=== PATIENT | female | born 1950 | race Caucasian/White ===

== ENCOUNTER 2018-11-16 15:42 | Outpatient (CLI) | payer MEDICARE, OTHER ==
[~2018-11-16] VITALS: Ht 167.6 cm; Wt 99.8 kg
[~2018-11-16 15:42] MED LIST: ASPI-612 PO; ATOR80TA PO; BUSP15TA14 PO; CELE-85 PO; CYCL-1 PO; EVOL140P SUBCUT; FLUO20CA39 PO; LAMO200T2 PO; LISI-604 PO; LOPE-144 PO; METO25TA6 PO; MIRT30TA8 PO; NITR0.4T51 SL; OMEP40CA37 PO
[2018-11-16 16:01] LABS: TOTAL HEMOGLOBIN 14.3 G/dl (12.0-16.0)
[2018-11-16] MEDS ORDERED: albuterol 2.5 MG/3 ML nebule NEB ONE (16:25)
== END 2018-11-16 23:59 | disposition home or self-care (01) ==
LOC: RT 15:42
PROVIDERS: ATTEND Internal Medicine Pulmonary Disease
DX: J44.9 Chronic obstructive pulmonary disease, unspecified (principal); J98.4 Other disorders of lung; I10 Essential (primary) hypertension; Z87.891 Personal history of nicotine dependence; Z79.899 Other long term (current) drug therapy
CPT/HCPCS: 85018; 94060; 94727; 94729; 94760

== ENCOUNTER 2019-06-04 18:33 | Emergency (ER) | payer MEDICARE, OTHER ==
[~2019-06-04] VITALS: Ht 167.6 cm; Wt 100.9 kg
[~2019-06-04 18:33] MED LIST changes: +ALBU8.5H8 INH; -BUSP15TA14 PO; +BUSP15TA8 PO; +COLE5PAC3 PO; -CYCL-1 PO; -EVOL140P SUBCUT; +EVOL140P3 SUBCUT; +FLUT12AE4 INH; +FURO40TA4 PO; -LISI-604 PO; -LOPE-144 PO; +MIRT15TA8 PO; -MIRT30TA8 PO; -NITR0.4T51 SL; -OMEP40CA37 PO; +OXYC-511 PO; +PANT-47 PO
--- NOTE | 2019-06-04 21:49 | NUR ---
PT HAS BEEN PO-CHALLENEGED WITH NO DYSPHAGIA OR VOMITING. MINOR BURPING NOTED BUT PT DENIES PAIN. CARLOS AWARE.
[2019-06-04 22:15] VITALS: BP 122/62
--- NOTE | 2019-06-08 08:39 | NUR ---
Case Management DC follow up: spoke to pt via telephone: reported no s/s dysphagia noted. Able to swallow w/o issues. solid foods, thin liquids, medications w/o issues. verbalizes understanding of medications and why prescribed, no ase at this time. pt states "everything works". pt states she still has diarrhea, but it is normal for her. she is having BMs. pt presented to the ER 06/04/2019 post paraesophageal hernia repair type 3/Dr Watt (06/01/2019) c/o difficulty swallowing, feeling blocked/constipated, NV. DC from ED after assessment deemed safe. Issues have resolved.Pt also denies abd pain, distention. Denies SOB, resp distress, cp, emergent general pain, NV. dizziness, or other issues that would warrant ER visit for further evaluation. Follow up w/Dr Watt/06/16/2019 and PCP/[facility]. All needs met, questions answered in ER/DC, no further questions at this time.
== END 2019-06-04 22:16 | disposition home or self-care (01) ==
LOC: ER 18:34
DX: R13.10 Dysphagia, unspecified (principal); E78.00 Pure hypercholesterolemia, unspecified; I10 Essential (primary) hypertension; I25.2 Old myocardial infarction; Z90.49 Acquired absence of other specified parts of digestive tract; Z90.710 Acquired absence of both cervix and uterus; Z95.5 Presence of coronary angioplasty implant and graft; Z88.5 Allergy status to narcotic agent; Z79.82 Long term (current) use of aspirin; Z79.899 Other long term (current) drug therapy
CPT/HCPCS: 99281

== ENCOUNTER 2020-09-05 14:42 | Emergency (ER) | payer MEDICARE, OTHER ==
[~2020-09-05] VITALS: Ht 170.2 cm; Wt 84.0 kg
[~2020-09-05 14:42] MED LIST changes: +LOP25T PO; -METO25TA6 PO; -OXYC-511 PO; +OXYC1TAB17 PO
[2020-09-05] MEDS ORDERED: normal saline 1000ML IV soln IVB ONE (14:50)
[2020-09-05 15:17] LABS: BASOPHILS # (AUTO) 0.1 X10'3 (0-0.2); BASOPHILS % (AUTO) 1.7 % (0-1); EOSINOPHILS # (AUTO) 0.1 X10'3 (0-0.9); EOSINOPHILS % (AUTO) 2.3 % (0-6); HEMATOCRIT 37.1 % (35.0-45.0); HEMOGLOBIN 11.8 g/dl (12.0-16.0); LYMPHOCYTES % (AUTO) 34.8 % (21-51); MEAN CORPUSCULAR HEMOGLOBIN 27.9 PG (27.0-31.0); MEAN CORPUSCULAR HGB CONC 31.8 g/dL (33.0-36.5); MEAN CORPUSCULAR VOLUME 87.8 FL (78-98); MEAN PLATELET VOLUME 8.4 FL (7.4-10.4); MONOCYTES # (AUTO) 0.7 X10'3 (0-0.9); MONOCYTES % (AUTO) 11.9 % (2-12); NEUTROPHILS # (AUTO) 2.8 X10'3 (1.8-7.7); NEUTROPHILS % (AUTO) 49.3 % (42-75); PLATELET COUNT 260 X10'3 (140-440); RED BLOOD COUNT 4.23 X10'6 (4.20-5.60); RED CELL DISTRIBUTION WIDTH 25.8 % (11.5-14.5); WHITE BLOOD COUNT 5.7 X10'3 (4.5-11.0)
[2020-09-05 15:32] LABS: ALANINE AMINOTRANSFERASE 28 U/L (12-78); ALBUMIN/GLOBULIN RATIO 1.1 (1.1-1.5); ALKALINE PHOSPHATASE 108 IU/L (46-116); ANION GAP 8 (8-16); ASPARTATE AMINO TRANSFERASE 19 U/L (10-37); BILIRUBIN,TOTAL 0.5 MG/DL (0.1-1.0); BLOOD UREA NITROGEN 16 MG/DL (7-18); BUN/CREATININE RATIO 15.4 (6.6-38.0); CALCIUM 8.7 MG/DL (8.5-10.1); CHLORIDE 106 MMOL/L (99-107); CREATININE 1.04 MG/DL (0.40-0.90); GLUCOSE 95 MG/DL (70-104); POTASSIUM 4.3 MMOL/L (3.5-5.1); SODIUM 143 MMOL/L (135-145); TOTAL CARBON DIOXIDE 29.3 MMOL/L (24-32); TOTAL PROTEIN 7.5 G/DL (6.4-8.2); eGFR 53 ML/MIN
[2020-09-05 16:12] VITALS: BP 103/55
[2020-09-05 16:21] LABS: ANISOCYTOSIS 3+; HYPOCHROMASIA 1+; PLATELET ESTIMATE NORMAL; TOTAL CELLS COUNTED 200
[2020-09-05 16:22] LABS: BURR CELLS FEW; ELLIPTOCYTES 1+; SCHISTOCYTES FEW; TARGET CELLS FEW; TEAR DROP CELLS FEW
== END 2020-09-05 17:25 | disposition home or self-care (01) ==
LOC: ER 14:43
DX: R42 Dizziness and giddiness (principal); E86.0 Dehydration; R11.0 Nausea; E78.00 Pure hypercholesterolemia, unspecified; I10 Essential (primary) hypertension; I25.2 Old myocardial infarction; F41.9 Anxiety disorder, unspecified; F32.9 Major depressive disorder, single episode, unspecified; Z90.49 Acquired absence of other specified parts of digestive tract; Z90.710 Acquired absence of both cervix and uterus; Z88.8 Allergy status to other drugs, medicaments and biological substances; Z79.82 Long term (current) use of aspirin; Z79.899 Other long term (current) drug therapy
CPT/HCPCS: 36415; 71045; 80053; 84484; 85007; 85025; 93005; 96360; 99285; J7030

== ENCOUNTER 2024-03-08 15:06 | Emergency (ER) | payer MEDICARE, OTHER ==
[~2024-03-08] VITALS: Ht 167.6 cm; Wt 72.7 kg
[~2024-03-08 15:06] MED LIST changes: +ALBU8.5H17 INH; -ALBU8.5H8 INH; +AZIT500T9 PO; +CELE-127 PO; -CELE-85 PO; +GUAI600T45 PO; +IPRA3AMP9 NEB; +MIRT-87 PO; -MIRT15TA8 PO
[2024-03-08 15:09] VITALS: TEMP 97.6
[2024-03-08] MEDS ORDERED: MECL-302 PO (17:18)
[2024-03-08] MEDS ORDERED: ONDA-245 PO (17:18)
[2024-03-08 17:19] VITALS: BP 128/73; PULSE 77; RESP 16; O2SAT 98
== END 2024-03-08 17:23 | disposition home or self-care (01) ==
LOC: ER 15:07
DX: S06.0XAA Concussion with loss of consciousness status unknown, initial encounter (principal); S09.8XXA Other specified injuries of head, initial encounter; E78.00 Pure hypercholesterolemia, unspecified; I10 Essential (primary) hypertension; I25.2 Old myocardial infarction; F41.9 Anxiety disorder, unspecified; F32.A Depression, unspecified; Z90.49 Acquired absence of other specified parts of digestive tract; Z90.710 Acquired absence of both cervix and uterus; Z95.5 Presence of coronary angioplasty implant and graft; Z88.8 Allergy status to other drugs, medicaments and biological substances; Z79.2 Long term (current) use of antibiotics; Z79.82 Long term (current) use of aspirin; Z79.899 Other long term (current) drug therapy; W01.0XXA Fall on same level from slipping, tripping and stumbling without subsequent striking against object, initial encounter; Y93.89 Activity, other specified; Y92.89 Other specified places as the place of occurrence of the external cause; Y99.8 Other external cause status
CPT/HCPCS: 70450; 99284

== ENCOUNTER 2024-08-03 20:14 | Emergency (ER) | payer MEDICARE, OTHER ==
[~2024-08-03] VITALS: Ht 170.2 cm; Wt 81.4 kg
[~2024-08-03 20:14] MED LIST changes: +ATOR-429 PO; -ATOR80TA PO; +MECL-302 PO; +ONDA-245 PO
[2024-08-03] MEDS ORDERED: tetanus & diphtheria toxoid (Td) vaccine 0.5ml IMVAC ONE (20:35)
[2024-08-03 20:46] LABS: BASOPHILS # (AUTO) 0.1 X10'3 (0-0.2); BASOPHILS % (AUTO) 1.2 % (0-1); EOSINOPHILS # (AUTO) 0.1 X10'3 (0-0.9); EOSINOPHILS % (AUTO) 2.1 % (0-6); HEMATOCRIT 33.1 % (35.0-45.0); HEMOGLOBIN 10.5 g/dl (12.0-16.0); LYMPHOCYTES # (AUTO) 2.1 X10'3 (1.1-4.8); LYMPHOCYTES % (AUTO) 35.9 % (21-51); MEAN CORPUSCULAR HEMOGLOBIN 28.6 PG (27.0-31.0); MEAN CORPUSCULAR HGB CONC 31.7 g/dL (33.0-36.5); MEAN CORPUSCULAR VOLUME 90.2 FL (78-98); MEAN PLATELET VOLUME 8.7 FL (7.4-10.4); MONOCYTES # (AUTO) 0.6 X10'3 (0-0.9); MONOCYTES % (AUTO) 10.9 % (2-12); NEUTROPHILS # (AUTO) 2.9 X10'3 (1.8-7.7); NEUTROPHILS % (AUTO) 49.9 % (42-75); PLATELET COUNT 170 X10'3 (140-440); RED BLOOD COUNT 3.67 X10'6 (4.20-5.60); WHITE BLOOD COUNT 5.7 X10'3 (4.5-11.0)
[2024-08-03 20:59] LABS: APTT 26 SECONDS (22-32); PROTHROMBIN TIME 10.4 SECONDS (9.0-12.0)
[2024-08-03 21:00] LABS: ALANINE AMINOTRANSFERASE 25 U/L (12-78); ALBUMIN/GLOBULIN RATIO 1.2 (1.1-1.5); ALKALINE PHOSPHATASE 102 IU/L (46-116); ANION GAP 5 (8-16); ASPARTATE AMINO TRANSFERASE 18 U/L (10-37); BILIRUBIN,TOTAL 0.5 MG/DL (0.1-1.0); BLOOD UREA NITROGEN 15 MG/DL (7-18); BUN/CREATININE RATIO 19.2 (10.0-20.0); CALCIUM 8.8 MG/DL (8.5-10.1); CHLORIDE 107 MMOL/L (99-107); CREATININE 0.78 MG/DL (0.40-0.90); GLUCOSE 94 MG/DL (70-104); SODIUM 143 MMOL/L (135-145); TOTAL CARBON DIOXIDE 31.5 MMOL/L (24-32); TOTAL PROTEIN 7.4 G/DL (6.4-8.2); eCRCL 63 ML/MIN; eGFR 73 ML/MIN
[2024-08-03 21:04] LABS: MAGNESIUM 2.2 MG/DL (1.5-2.4)
[2024-08-03] MEDS: TETanus/Pertussis (Acell)/Diphther VAC/PF (Tdap-Adult) 0.5ml syringe IMVAC ONE (21:22)
[2024-08-03] MEDS ORDERED: HYDR-3965 PO (22:47)
[2024-08-03] MEDS ORDERED: ONDA-243 PO (22:47)
[2024-08-03] MEDS ORDERED: NALO4SPR BOTHNARES (22:47)
[2024-08-03] MEDS ORDERED: AMOX-580 PO (22:47)
[2024-08-03 23:03] VITALS: BP 135/61; PULSE 73; RESP 13; TEMP 98.4; O2SAT 95
== END 2024-08-03 23:06 | disposition home or self-care (01) ==
LOC: ER 20:14
DX: S02.40DA Maxillary fracture, left side, initial encounter for closed fracture (principal); S02.32XA Fracture of orbital floor, left side, initial encounter for closed fracture; S00.81XA Abrasion of other part of head, initial encounter; E78.00 Pure hypercholesterolemia, unspecified; G89.11 Acute pain due to trauma; I10 Essential (primary) hypertension; I25.2 Old myocardial infarction; Z88.5 Allergy status to narcotic agent; Z88.6 Allergy status to analgesic agent; Z90.49 Acquired absence of other specified parts of digestive tract; Z90.710 Acquired absence of both cervix and uterus; Z79.01 Long term (current) use of anticoagulants; Z95.5 Presence of coronary angioplasty implant and graft; W05.0XXA Fall from non-moving wheelchair, initial encounter; W19.XXXA Unspecified fall, initial encounter; Y93.89 Activity, other specified; Y92.89 Other specified places as the place of occurrence of the external cause; Y99.8 Other external cause status
CPT/HCPCS: 36415; 70450; 71045; 72125; 80053; 83735; 84484; 85025; 85610; 85730; 90715; 93005; 99285; A4615; G0008; 90471

== ENCOUNTER 2025-04-18 10:42 | Emergency (ER) | payer MEDICARE, OTHER ==
[~2025-04-18] VITALS: Ht 170.2 cm; Wt 80.4 kg
[~2025-04-18 10:42] MED LIST changes: +AZEL137S4 BOTHNARES; -AZIT500T9 PO; -CELE-127 PO; +CLON-570; -COLE5PAC3 PO; -EVOL140P3 SUBCUT; -FLUO20CA39 PO; +FLUO20CA41 PO; +FURO20TA4 PO; -FURO40TA4 PO; -GUAI600T45 PO; -IPRA3AMP9 NEB; +LACO50TA2 PO; -MECL-302 PO; +MIRT-66 PO; -MIRT-87 PO; +ONDA-243 PO; -ONDA-245 PO; -OXYC1TAB17 PO; -PANT-47 PO; +PANT40TA54 PO; +QUET25TA PO
[2025-04-18 10:45] VITALS: TEMP 99.3
--- NOTE | 2025-04-18 11:48 | RADIOLOGY REPORT ---
INDICATION: tailbone pain after fall TECHNIQUE: 3 views of the sacrum/coccyx spine were obtained. COMPARISON: None FINDINGS: There are no acute fractures or subluxations. Diffuse osteopenia. Moderate degenerative changes of the rectum. IMPRESSION: No acute fracture or subluxation.
[2025-04-18 12:05] VITALS: BP 102/47; PULSE 83; O2SAT 96
--- NOTE | 2025-04-18 12:11 | Physician Documentation ---
History of Present Illness ~ Chief Complaint: Mechanical Fall Stated Complaint: FALL TAILBONE PAIN Time Seen by MD: 10:57 Primary Medical Doctor: Braydon Mode of Arrival: POV HPI 74 year old female s/p ground level fall onto buttocks several days ago, experiencing pain to tailbone. Is ambulatory but severe pain. Denies other injury. Tetanus within 5 Years?: Yes Medication Reconciliation Allergies: Coded Allergies: clonazepam (Unverified Allergy, Unknown, 03/27/25) hydromorphone (Verified Adverse Reaction, Unknown, HALLUCINATIONS, ) Scheduled Albuterol Sulfate (Proair Hfa), 2 PUFFS INH Q4HPRN, (Reported) Aspirin (Aspir 81), 81 MG PO DAILY, (Reported) Atorvastatin Calcium* (Lipitor*), 1 TABLET PO HS, (Reported) Buspirone HCl (Buspirone HCl), 2 TABLET PO BID, (Reported) Fluoxetine Hcl* (Prozac*), 3 CAP PO QAM, (Reported) Fluticasone/Salmeterol (Advair Hfa 115-21 Mcg Inhaler), 2 PUFF INH BID Furosemide (Furosemide), 1 TAB PO DAILY Lacosamide (Vimpat), 50 MG PO BID, (Reported) Lamotrigine* (Lamictal*), 1 TABLET PO BID, (Reported) Metoprolol Tartrate* (Lopressor tablet*), 0.5 TAB PO DAILY, (Reported) Mirtazapine (Mirtazapine), 3 TAB PO BID, (Reported) Pantoprazole Sodium (Pantoprazole Sodium), 40 MG PO BKF Scheduled PRN Azelastine HCl (Azelastine HCl), 1 SPRAYS BOTHNARES BID PRN for congestion, (Reported) Clonazepam (Clonazepam), for anxiety, (Reported) ONDANSETRON ODT 4mg tablet (Ondansetron Odt), 1 TAB PO Q6H PRN PRN for nausea/vomiting Quetiapine Fumarate (Seroquel), 2 TAB PO HS PRN for sleep, (Reported) Past Medical History Past Medical History: Coronary Artery Disease, High Cholesterol, Hypertension, Myocardial Infarction, COPD, Anxiety, Depression Past Surgical History: cholecystectomy, hysterectomy Other Past Surgical History: cardiac stent Patient History: FH: heart disease MOTHER, Age: 94 Alcohol Use: None Drug Use: none Lives with: Spouse Lives In: Home Review of Systems All Other Systems at this time: Reviewed and Negative Physical Exam Vital Signs: RN Vital Signs have been reviewed: Yes, Temperature: 99.3, Source: Temporal, Heart Rate: 83, Respiratory Rate: 20, BP: 102/47, Pulse Oximetry: 96, Weight: 80.400 Oxygen Flow Rate: 2.0 Physical Exam General-patient not in any acute distress, alert awake oriented, chronically ill-appearing, age-appropriate, looks comfortable HEENT-atraumatic normocephalic, neck supple without elevated JVD, no thyromegaly or carotid bruit. No lymphadenopathy bilaterally. Chest-deferred Heart-deferred Abdomen: deferred Skin no active skin rash Neurology-grossly intact, nonfocal alert awake oriented Extremity- no deformity; +TTP over coccyx Psychiatry - patient is not confused or agitated cooperated during physical examination Progress Results/Orders Results/Orders Orders - STEPHANIE EILZABETH MD Sacrum & Coccyx (04/18/25 10:57) Completed Orders - STEPHANIE ELIZABETH MD Sacrum & Coccyx (04/18/25 10:57) Vital Signs 04/18/25 04/18/25 04/18/25 04/18/25 10:45 10:58 11:00 12:05 Temp 99.3 Pulse 100 94 83 Resp 18 20 18 20 B/P (MAP) 120/60 124/100 (108) 102/47 (65) Pulse Ox 96 96 96 O2 Flow Rate 0 2.0 2.0 Medical Decision Making Additional information obtaine: N/A Findings 74 year old female with coccygeal pain after fall. Xray demonstrated no fractures or dislocations. Will road test and discharge. Differential Dx:Considerations: Include: Other Additional Comment Ddx = fracture, contusion Departure Disposition: HOME / SELF CARE / HOMELESS Impression: Primary Impression: Coccygeal pain Condition: Stable Discharge Instructions: Fall Prevention in the Home, Adult, [id number] Referrals: NO PRIMARY CARE PROVIDER (PCP) Education Educated: Patient Educated regarding: diagnosis, treatment, prognosis, need for follow up Signature Scribe Signature: . Attestation: . STEPHANIE ELIZABETH MD Apr 18, 2025 12:11
[2025-04-18 12:36] VITALS: RESP 16
[2025-04-18] MEDS: HYDROcodone/acetaminophen 5mg/325mg tablet PO ONE (12:36)
== END 2025-04-18 12:46 | disposition home or self-care (01) ==
LOC: ER 10:43
DX: M53.3 Sacrococcygeal disorders, not elsewhere classified (principal); J44.9 Chronic obstructive pulmonary disease, unspecified; I25.2 Old myocardial infarction; I25.10 Atherosclerotic heart disease of native coronary artery without angina pectoris; I10 Essential (primary) hypertension; E78.00 Pure hypercholesterolemia, unspecified; F32.A Depression, unspecified; F41.9 Anxiety disorder, unspecified; Z90.49 Acquired absence of other specified parts of digestive tract; Z90.710 Acquired absence of both cervix and uterus; Z95.5 Presence of coronary angioplasty implant and graft; Z88.5 Allergy status to narcotic agent; Z88.8 Allergy status to other drugs, medicaments and biological substances; Z79.82 Long term (current) use of aspirin; Z79.899 Other long term (current) drug therapy
CPT/HCPCS: 72220; 99283